=== PATIENT | female | born 1955 | race Caucasian/White ===

== ENCOUNTER 2023-07-20 15:12 | Observation (INO) | payer MEDICARE, OTHER ==
--- NOTE | 2023-07-20 15:16 | ED ---
Chest Pain HPI - General Source: patient, RN notes reviewed Mode of arrival: ambulatory Limitations: no limitations - History of Present Illness MD Complaint: chest pain <Nancy Robbins - Last Filed: 07/20/23 15:13> <Carter Ledesma - Last Filed: 07/21/23 01:09> - General Chief Complaint: Chest Pain Stated Complaint: Chest pain and SOB Time Seen by Provider: 07/20/23 15:15 - History of Present Illness Initial Comments: This is a 68 year old female who presents to the emergency department for chest pain and shortness of breath. She went to urgent care earlier today for her symptoms and was subsequently told to come to the emergency department for evaluation. She had an EKG done at urgent care and was told that this was normal. 1 month ago she was diagnosed with aortic valve regurgitation and she had a cardiac stent placed in 2008. (Nancy Robbins) 68-year-old female presenting with chief complaint of chest pain. Pain has been ongoing for 1 week. It is accompanied by shortness of breath. She states that the pain feels like a soreness in the center of her chest. She denies any lower extremity swelling. No cough, congestion, sore throat, fever, chills. No abdominal pain, nausea, vomiting, (Carter Ledesma) - Related Data Home Medications Medication Instructions Recorded Confirmed ALPRAZolam [Xanax] 0.25 mg PO BID PRN 07/20/23 07/20/23 Albuterol Sulfate [Albuterol 2 puff PO RT-Q6H PRN 07/20/23 07/20/23 Sulfate Hfa] Alirocumab [Praluent Pen] 75 mg SQ Q14D 07/20/23 07/20/23 Famotidine [Pepcid] 20 mg PO BID 07/20/23 07/20/23 Fluticasone Nasal [place] [Flonase 2 spray EA NOSTRIL HS 07/20/23 07/20/23 Nasal [place]] Levothyroxine Sodium [Synthroid] 125 mcg PO DAILY 07/20/23 07/20/23 Montelukast [Singulair] 10 mg PO HS 07/20/23 07/20/23 Rosuvastatin Calcium 5 mg PO MOWEFR@2100 07/20/23 07/20/23 Sertraline [Zoloft] 50 mg PO DAILY 07/20/23 07/20/23 Warfarin Sodium 4 mg PO BRIAN@2100 07/20/23 07/20/23 Warfarin Sodium 5 mg PO KENDRAA@2100 07/20/23 07/20/23 lisinopriL [Zestril] 5 mg PO HS 07/20/23 07/20/23 traMADol HCL 50 mg PO Q6H PRN 07/20/23 07/20/23 Allergies Allergy/AdvReac Type Severity Reaction Status Date / Time Penicillins Allergy Rash/Hives Verified 07/20/23 22:41 Sulfa (Sulfonamide Allergy Nausea & Verified 07/20/23 22:41 Antibiotics) Vomiting & Diarrhea tetanus and diphtheria Allergy fever Verified 07/20/23 22:41 toxoids Review of Systems ROS Other: All systems not noted in ROS Statement are negative. <Nancy Robbins - Last Filed: 07/20/23 15:13> ROS Other: All systems not noted in ROS Statement are negative. <Carter Ledesma - Last Filed: 07/21/23 01:09> ROS Statement: Those systems with pertinent positive or pertinent negative responses have been documented in the HPI. General Exam <Nancy Robbins - Last Filed: 07/20/23 15:13> Limitations: no limitations General appearance: alert, in no apparent distress Head exam: Present: atraumatic, normocephalic, normal inspection Eye exam: Present: normal appearance, EOMI. Absent: scleral icterus, periorbital swelling Neck exam: Present: normal inspection, full ROM Respiratory exam: Present: normal lung sounds bilaterally. Absent: respiratory distress, wheezes, rales, rhonchi, stridor Cardiovascular Exam: Present: regular rate, normal rhythm, normal heart sounds. Absent: systolic murmur, diastolic murmur, rubs, gallop, clicks Extremities exam: Absent: pedal edema Neurological exam: Present: alert, oriented X3, CN II-XII intact Psychiatric exam: Present: normal affect, normal mood Skin exam: Present: warm, dry, intact, normal color. Absent: rash <Carter Ledesma - Last Filed: 07/21/23 01:09> - General Exam Comments Initial Comments: Visual Physical Exam Vital signs reviewed General: Well-appearing, nontoxic, no acute distress. Head: Normocephalic, atraumatic Eyes: PERRLA, EOMI ENT: Airway patent Chest: Nonlabored breathing Skin: No visual rash, normal skin tone Neuro: Alert and oriented 3 Musculoskeletal: No gross abnormalities I performed the QuickNote portion of this chart. Signed Nancy Robbins PA-C. (Nancy Robbins) Course Vital Signs 07/20/23 07/20/23 07/20/23 15:13 19:15 20:45 Temperature 98.5 F 98.1 F Pulse Rate 97 77 68 Respiratory 20 18 18 Rate Blood Pressure 125/63 151/78 167/84 O2 Sat by Pulse 95 100 97 Oximetry 07/20/23 07/21/23 22:00 01:04 Temperature Pulse Rate 71 77 Respiratory 18 18 Rate Blood Pressure 195/84 100/64 O2 Sat by Pulse 95 93 L Oximetry Chest Pain MDM <Carter Ledesma - Last Filed: 07/21/23 01:09> - MDM Was pt. sent in by a medical professional or institution ([facility], EMISSIONS TECHNICIAN, urgent care, hospital, or long-term...) When possible be specific @ -No Did you speak to anyone other than the patient for history (EMS, parent, family, police, friend...)? What history was obtained from this source @ -No Did you review nursing and triage notes (agree or disagree)? Why? @ -I reviewed and agree with nursing and triage notes Were old charts reviewed (outside hosp., previous admission, EMS record, old EKG, old radiological studies, urgent care reports/EKG's, long-term records)? Report findings @ -No old charts were reviewed Differential Diagnosis (chest pain, altered mental status, abdominal pain women, abdominal pain men, vaginal bleeding, weakness, fever, dyspnea, syncope, headache, dizziness, GI bleed, back pain, seizure, CVA, palpatations, mental health, musculoskeletal)? @ -MDM Differential Chest Pain: Stable Angina, Unstable Angina, STEMI, NSTEMI Aortic Dissection, Pneumothorax, Musculoskeletal, Esophageal Spasm GERD, Cholecystitis, Pancreatitis, Zoster This is not meant to be an all-inclusive list. EKG interpreted by me (3pts min.). @ Sinus rhythm ventricular rate 78. AL interval 137. QRS 93. QT 379. QTc 412. X-rays interpreted by me (1pt min.). @ -Increased airspace opacities projecting over the heart. Correlate for pneumonia. Superimposed COPD. CT interpreted by me (1pt min.). @ -None done U/S interpreted by me (1pt. min.). @ -None done What testing was considered but not performed or refused? (CT, X-rays, U/S, labs)? Why? @ -None What meds were considered but not given or refused? Why? @ -None Did you discuss the management of the patient with other professionals (professionals i.e. , PA, EMISSIONS TECHNICIAN, lab, RT, psych nurse, social work job titles, manager utility, teacher, youth liaison officer, geriatric case manager)? Give summary @ -Spoke with Dr. Bean who accepted admission Was smoking cessation discussed for >3mins.? @ -No Was critical care preformed (if so, how long)? @ -No Were there social determinants of health that impacted care today? How? (Homelessness, low income, unemployed, alcoholism, drug addiction, transportation, low edu. Level, literacy, decrease access to med. care, penitentiary, rehab)? @ -No Was there de-escalation of care discussed even if they declined (Discuss DNR or withdrawal of care, Hospice)? DNR status @ -No What co-morbidities impacted this encounter? (DM, HTN, Smoking, COPD, CAD, Cancer, CVA, ARF, Chemo, Hep., AIDS, mental health diagnosis, sleep apnea, morbid obesity)? @ -CAD Was patient admitted / discharged? Hospital course, mention meds given and route, prescriptions, significant lab abnormalities, going to OR and other pert inent info. @ -68-year-old female presenting with chief complaint of chest pain and shortness of breath ongoing for the last week. On physical examination heart and lungs are clear to auscultation. Lab work shows no leukocytosis or anemia. INR therapeutic at 3.0, patient is on warfarin. Negative troponin. Negative influenza, RSV, and covid. Chest x-ray suggestive of pneumonia. Given the patient's presentation I think pneumonia is less likely. She will be admitted for observation for chest pain. Patient is agreeable with this plan. I discussed this case with my attending Dr. Taylor, Dr. Geneva accepted admission. After patient was admitted she began having active chest pain again. New EKG obtained showed some ST depression. Patient was given aspirin, nitro, started on heparin after discussion with my attending. Undiagnosed new problem with uncertain prognosis? @ -No Drug Therapy requiring intensive monitoring for toxicity (Heparin, Nitro, Insulin, Cardizem)? @ -heparin Were any procedures done? @ -No Diagnosis/symptom? @ -Chest pain, pneumonia Acute, or Chronic, or Acute on Chronic? @ -Acute Uncomplicated (without systemic symptoms) or Complicated (systemic symptoms)? @ -Complicated Side effects of treatment? @ -No Exacerbation, Progression, or Severe Exacerbation? @ -No Poses a threat to life or bodily function? How? (Chest pain, USA, CT, pneumonia, PE, COPD, DKA, ARF, appy, cholecystitis, CVA, Diverticulitis, Homicidal, Suicidal, threat to staff... and all critical care pts) @ -Yes (Carter Ledesma) Disposition <Nancy Robbins - Last Filed: 07/20/23 15:13> Time of Disposition: 22:34 <Carter Ledesma - Last Filed: 07/21/23 01:09> Clinical Impression: Pneumonia, Chest pain Disposition: ADMITTED IP TO THIS HOSP Condition: Fair
[2023-07-20 15:52] LABS: Basophils % (A) 0 %; Eosinophils # (A) 0.3 k/uL (0-0.7); Eosinophils % (A) 3 %; HCT 45.5 % (34.0-46.0); HGB 15.4 gm/dL (11.4-16.0); Lymphocytes # (A) 1.3 k/uL (1.0-4.8); Lymphocytes % (A) 15 %; MCH 31.4 pg (25.0-35.0); MCHC 33.8 g/dL (31.0-37.0); MCV 92.9 fL (80.0-100.0); Mean Platelet Volume 7.7; Monocytes # (A) 0.5 k/uL (0-1.0); Monocytes % (A) 6 %; Neutrophils # (A) 6.4 k/uL (1.3-7.7); Neutrophils % (A) 75 %; Platelet Count 221 k/uL (150-450); RBC 4.89 m/uL (3.80-5.40); RDW 12.8 % (11.5-15.5); WBC 8.5 k/uL (3.8-10.6)
[2023-07-20 16:00] LABS: Partial Thromboplastin Time 39.3 sec (22.0-30.0); Prothrombin Time 29.7 sec (9.0-12.0)
--- NOTE | 2023-07-20 16:04 | XR ---
EXAMINATION TYPE: XR chest 2V DATE OF EXAM: 07/20/2023 3:49 PM COMPARISON: Chest radiographs from 12/21/2012 TECHNIQUE: XR chest 2V Frontal and lateral views of the chest. CLINICAL INDICATION:Female, 68 years old with history of Chest Pain; FINDINGS: Lungs/Pleura: There is some increased opacities projecting over the heart compared to prior. Prominen t interstitial lung markings are seen scattered throughout the lungs. No evidence of focal consolidat ion, pneumothorax or pleural effusion. Pulmonary vascularity: Unremarkable. Heart/mediastinum: Cardiomediastinal silhouette is unremarkable. Musculoskeletal: No acute osseous pathology. IMPRESSION: 1. Increased airspace opacities projecting the heart. Correlate for pneumonia. Superimposed COPD.
[2023-07-20 16:38] LABS: ALT 26 U/L (4-34); AST 26 U/L (14-36); African American GFR (CKD) 77 (>60 ml/min/1.73 sqM); Albumin 3.8 g/dL (3.5-5.0); Alkaline Phosphatase 77 U/L (38-126); Anion Gap 7 mmol/L; Blood Urea Nitrogen 19 mg/dL (7-17); Calcium 9.1 mg/dL (8.4-10.2); Carbon Dioxide 29 mmol/L (22-30); Chloride 101 mmol/L (98-107); Glucose 159 mg/dL (74-99); Magnesium 1.9 mg/dL (1.6-2.3); Non-African American GFR(CKD) 66 (>60 ml/min/1.73 sqM); Potassium 3.8 mmol/L (3.5-5.1); Sodium 137 mmol/L (137-145); Total Bilirubin 0.7 mg/dL (0.2-1.3); Total Protein 6.8 g/dL (6.3-8.2)
[2023-07-20] MEDS ORDERED: lisinopriL 5 MG TAB PO STA (21:16)
[2023-07-20] MEDS ORDERED: hydrALAZINE HCL 20 MG/ML 1 ML VIAL IVP STA (21:59)
[2023-07-20 22:18] LABS: Glucose,Whole Blood 90 mg/dL (70-110)
[2023-07-20] MEDS ORDERED: AZITHROMYCIN 500 MG in SODIUM CHLORIDE 0.9% 250 ML IVPB STA (22:30)
[2023-07-20] MEDS ORDERED: NALOXONE 0.4 MG/ML 1 ML VIAL IV PRN (22:31)
[2023-07-20] MEDS ORDERED: SODIUM CHLORIDE 0.9% 1,000 ML IV SCH (22:45)
[2023-07-20] MEDS ORDERED: NITROGLYCERIN SL TABS 0.4 MG TAB SUBLINGUAL PRN (23:10)
[2023-07-20] MEDS ORDERED: ASPIRIN 81 MG PO STA (23:10)
[2023-07-20] MEDS: PANTOPRAZOLE 40 MG/10 ML VIAL IV SCH (23:17)
[2023-07-20] MEDS ORDERED: HEPARIN SODIUM 1,000 UN/ML (10ML VL) IV PRN (23:22)
[2023-07-20] MEDS ORDERED: HEPARIN SODIUM 1,000 UN/ML (10ML VL) IV ONE (23:22)
[2023-07-20] MEDS ORDERED: HEPARIN SOD,PORK IN 0.45% NACL 25,000 UNIT in 0.45% NACL 1 250ML.BAG IV SCH (23:30)
[2023-07-21] MEDS ORDERED: MAG HYDROX/AL HYDROX/SIMETH 30 ML CUP PO PRN (01:35)
[2023-07-21] MEDS ORDERED: ZOLPIDEM 5 MG TAB PO STA (01:38)
[2023-07-21] MEDS ORDERED: ALPRAZolam 0.25 MG TAB PO PRN (04:12)
--- NOTE | 2023-07-21 04:41 | P.HPIM ---
History of Present Illness H&P Date: 07/20/23 Chief Complaint: chest pain 68 year old female with antiphospholipic antibody syndrome with history of stroke .on coumadin comes in from urgent care due to chest pain . she describes 1 week history of lower chest/ epigastric pain , she notices it getting worse at night time, but no other clear precipitating or aggrevating factors. she does have GERD symptoms , but this time she was also experiencing short lived pain with SOB. for the past week. no associated dizziness, profuse sweating, palpitations or syncope . she does have history of stroke due to her APLS for which she is on coumadin. she has history of CAD s/p stent 2009 in her LAD. she went to urgent care today due to recurrent symptoms , and her EKG was normal there, but the doc recommended she goes to the ED for further eval. she denies any cough , fever, chills, vomiting, diarrhea , changes in her urinary habits, or any new focal neuro deficits no recent travel, she is compliant with her meds. INR upon presentation was 3 denies tobacco smoking, illicit drugs or alcohol review of systems Pertinent positives as noted in HPI. All other systems were reviewed and are negative on exam Constitutional: No acute distress, conversant, pleasant Eyes: Anicteric sclerae, moist conjunctiva, Pupils equal round reactive to light ENMT: NC/AT Oropharynx clear, no erythema, or exudates Neck: Supple, no masses, or JVD No carotid bruits No thyromegaly Lungs: Clear to auscultation Clear to percussion Normal respiratory effort, no accessory muscle use Cardiovascular: Heart regular in rate and rhythm, No murmurs, gallops, or rubs No peripheral edema Abdominal: Soft epigastric tenderness , no guarding, rebound or rigidity Abdomen moving with respiration Normoactive bowel sounds No hepatomegaly, No splenomegaly No palpable mass No abdominal wall hernia noted Skin: Normal temperature, tone, texture, turgor No induration No subcutaneous nodules No rash, lesions No ulcers Extremities: No digital cyanosis No clubbing Pedal pulses intact and symmetrical Radial pulses intact and symmetrical No calf tenderness Psychiatric: Alert and oriented to person, place and time Appropriate affect fair judgement Neuro Muscles Strength 5/5 in all 4 extremities Sensation to light touch grossly present throughout Cranial nerves II-XII grossly intact Lymphatics: no palpable cervical or supraclavicular lymph nodes Past Medical History Past Medical History: Coronary Artery Disease (CAD) History of Any Multi-Drug Resistant Organisms: None Reported Past Surgical History: Heart Catheterization With Stent Additional Past Surgical History / Comment(s): cataracts, eye lid surgery Past Psychological History: Depression Smoking Status: Never smoker Past Alcohol Use History: Occasional Past Drug Use History: Marijuana Medications and Allergies Home Medications Medication Instructions Recorded Confirmed Type ALPRAZolam [Xanax] 0.25 mg PO BID PRN 07/20/23 07/20/23 History Albuterol Sulfate [Albuterol 2 puff PO RT-Q6H PRN 07/20/23 07/20/23 History Sulfate Hfa] Alirocumab [Praluent Pen] 75 mg SQ Q14D 07/20/23 07/20/23 History Famotidine [Pepcid] 20 mg PO BID 07/20/23 07/20/23 History Fluticasone Nasal [place] [Flonase 2 spray EA NOSTRIL HS 07/20/23 07/20/23 History Nasal [place]] Levothyroxine Sodium [Synthroid] 125 mcg PO DAILY 07/20/23 07/20/23 History Montelukast [Singulair] 10 mg PO HS 07/20/23 07/20/23 History Rosuvastatin Calcium 5 mg PO MOWEFR@209907/20/23 07/20/23 History Sertraline [Zoloft] 50 mg PO DAILY 07/20/23 07/20/23 History Warfarin Sodium 4 mg PO MOTH@209907/20/23 07/20/23 History Warfarin Sodium 5 mg PO SUTUWEFRSA@209907/20/23 07/20/23 History lisinopriL [Zestril] 5 mg PO HS 07/20/23 07/20/23 History traMADol HCL 50 mg PO Q6H PRN 07/20/23 07/20/23 History Allergies Allergy/AdvReac Type Severity Reaction Status Date / Time Penicillins Allergy Rash/Hives Verified 07/20/23 22:41 Sulfa (Sulfonamide Allergy Nausea & Verified 07/20/23 22:41 Antibiotics) Vomiting & Diarrhea tetanus and diphtheria Allergy fever Verified 07/20/23 22:41 toxoids Physical Exam Vitals: Vital Signs Temp Pulse Resp BP Pulse Ox 07/21/23 02:17 85 18 117/59 94 L 07/21/23 01:04 77 18 100/64 93 L 07/20/23 22:00 71 18 195/84 95 07/20/23 20:45 68 18 167/84 97 07/20/23 19:15 98.1 F 77 18 151/78 100 07/20/23 15:13 98.5 F 97 20 125/63 95 Intake and Output 07/20/23 07/20/23 07/21/23 14:59 22:59 06:59 Other: Weight 79.832 kg Results CBC & Chem 7: 07/20/23 15:31 07/20/23 15:31 Labs: Abnormal Lab Results - Last 24 Hours (Table) 07/20/23 07/20/23 Range/Units 15:31 15:31 PT 29.7 H (9.0-12.0) sec INR 3.0 H (<1.2) APTT 39.3 H (22.0-30.0) sec BUN 19 H (7-17) mg/dL Glucose 159 H (74-99) mg/dL Assessment and Plan Assessment: 68 year old female with APLS with history of stroke on coumadin , h/o CAD with stent of LAD 2008 , coming in for chest pain X1 week I discussed the case with ED doc and I accepted the admission for atypical chest pain to rule out ACS with anticipted length of stay < 2 midnights atypical chest pain h/o CAD stent LAD 2008 negative stress test in april of this year recent echocardiogram showed aortic valve insufficiency trops negative equipment monitor phototypesetting EKG ST depression lateral leads cardiology consult continue with statin , aspirin d dimer negative acute respiratory viral panel negative for covid , rsv , and influenza CXR showed some possible opacities , but denies any respiratory symptoms APLS with history of stroke on coumadin INR 3 theraputic continue coumadin dosing by pharmacy GERD consider OP GI eval with possible EGD maalox prn protonix 40 mg po daily COPD / asthma continue inhalers , continue singulair compensated hypothyroid resume levothyroxin full code DVT PPX on coumadin for APLS
[2023-07-21] MEDS ORDERED: LEVOTHYROXINE 125 MCG TAB PO SCH (06:30)
[2023-07-21 07:56] LABS: INR 2.4 (<1.2); Prothrombin Time 23.1 sec (9.0-12.0)
[2023-07-21] MEDS ORDERED: PANTOPRAZOLE 40 MG/10 ML VIAL ONE (09:00)
[2023-07-21] MEDS ORDERED: SERTRALINE 50 MG TAB PO SCH (09:00)
[2023-07-21] MEDS ORDERED: SERTRALINE 50 MG TAB ONE (09:00)
[2023-07-21 09:02] VITALS: BP 120/69; PULSE 62; RESP 20; TEMP 98.3
--- NOTE | 2023-07-21 09:04 | P.CRDCN ---
History of Present Illness History of present illness: Patient presents with chest discomfort for about a week Pain had been constant for one week and when she came in yesterday Twelve-lead EKG shows sinus rhythm with nonspecific ST-T abnormality Normal cardiac enzyme x2 Labs are normal She has a history of coronary artery disease status post coronary stenting History of hypercoagulable state on warfarin History of dyslipidemia currently on [employer] skin 9 inhibitors and in talking to statins Aortic regurgitation Lisinopril was added recently 2-D echo and Doppler study she has recently shown preserved LV systolic function with 2-3+ aortic regurgitation Normal stress test recently in April Plan Repeat troponin, third Ambulate around the hallway Watch for any exertional chest discomfort Internet issues today EMR not working Difficult to get into EMR Past Medical History Past Medical History: Coronary Artery Disease (CAD) History of Any Multi-Drug Resistant Organisms: None Reported Past Surgical History: Heart Catheterization With Stent Additional Past Surgical History / Comment(s): cataracts, eye lid surgery Past Psychological History: Depression Smoking Status: Never smoker Past Alcohol Use History: Occasional Past Drug Use History: Marijuana Medications and Allergies Home Medications Medication Instructions Recorded Confirmed Type ALPRAZolam [Xanax] 0.25 mg PO BID PRN 07/20/23 07/20/23 History Albuterol Sulfate [Albuterol 2 puff PO RT-Q6H PRN 07/20/23 07/20/23 History Sulfate Hfa] Alirocumab [Praluent Pen] 75 mg SQ Q14D 07/20/23 07/20/23 History Famotidine [Pepcid] 20 mg PO BID 07/20/23 07/20/23 History Fluticasone Nasal [place] [Flonase 2 spray EA NOSTRIL HS 07/20/23 07/20/23 History Nasal [place]] Levothyroxine Sodium [Synthroid] 125 mcg PO DAILY 07/20/23 07/20/23 History Montelukast [Singulair] 10 mg PO HS 07/20/23 07/20/23 History Rosuvastatin Calcium 5 mg PO MOWEFR@209907/20/23 07/20/23 History Sertraline [Zoloft] 50 mg PO DAILY 07/20/23 07/20/23 History Warfarin Sodium 4 mg PO MOTH@209907/20/23 07/20/23 History Warfarin Sodium 5 mg PO SUTUWEFRSA@209907/20/2323 History lisinopriL [Zestril] 5 mg PO HS 07/20/23 07/20/23 History traMADol HCL 50 mg PO Q6H PRN 07/20/23 07/20/23 History Allergies Allergy/AdvReac Type Severity Reaction Status Date / Time Penicillins Allergy Rash/Hives Verified 07/20/23 22:41 Sulfa (Sulfonamide Allergy Nausea & Verified 07/20/23 22:41 Antibiotics) Vomiting & Diarrhea tetanus and diphtheria Allergy fever Verified 07/20/23 22:41 toxoids Physical Exam Vitals: Vital Signs Temp Pulse Pulse Resp BP BP Pulse Ox 07/21/23 07:00 98.3 F 62 20 120/69 97 07/21/23 05:20 78 134/73 94 L 07/21/23 02:17 85 18 117/59 94 L 07/21/23 01:04 77 18 100/64 93 L 07/20/23 22:00 71 18 195/84 95 07/20/23 20:45 68 18 167/84 97 07/20/23 19:15 98.1 F 77 18 151/78 100 07/20/23 15:13 98.5 F 97 20 125/63 95 Intake and Output 07/20/23 07/21/23 07/21/23 22:59 06:59 14:59 Other: Weight 79.832 kg Results 07/20/23 15:31 07/20/23 15:31 Cardiac Enzymes 07/20/23 07/20/23 07/20/23 Range/Units 15:31 15:31 23:14 AST 26 (14-36) U/L Troponin I <0.012 <0.012 (0.000-0.034) ng/mL 07/21/23 Range/Units 02:25 AST (14-36) U/L Troponin I <0.012 (0.000-0.034) ng/mL Coagulation 07/20/23 07/21/23 Range/Units 15:31 06:35 PT 29.7 H 23.1 H (9.0-12.0) sec APTT 39.3 H (22.0-30.0) sec CBC 07/20/23 Range/Units 15:31 WBC 8.5 (3.8-10.6) k/uL RBC 4.89 (3.80-5.40) m/uL Hgb 15.4 (11.4-16.0) gm/dL Hct 45.5 (34.0-46.0) % Plt Count 221 (150-450) k/uL Comprehensive Metabolic Panel 07/20/23 Range/Units 15:31 Sodium 137 (137-145) mmol/L Potassium 3.8 (3.5-5.1) mmol/L Chloride 101 (98-107) mmol/L Carbon Dioxide 29 (22-30) mmol/L BUN 19 H (7-17) mg/dL Creatinine 0.89 (0.52-1.04) mg/dL Glucose 159 H (74-99) mg/dL Calcium 9.1 (8.4-10.2) mg/dL AST 26 (14-36) U/L ALT 26 (4-34) U/L Alkaline Phosphatase 77 (38-126) U/L Total Protein 6.8 (6.3-8.2) g/dL Albumin 3.8 (3.5-5.0) g/dL Current Medications Generic Name Dose Route Start Last Admin Trade Name Freq PRN Reason Stop Dose Admin Al Hydroxide/Mg Hydroxide 30 ml 07/21/23 01:35 07/21/23 02:17 Mag Hydrox/Al Hydrox/Simeth 30 Ml Cup PO 30 ml Q4HR PRN Administration GI Upset Alprazolam 0.25 mg 07/21/23 04:12 Alprazolam 0.25 Mg Tab PO BID PRN Anxiety Atorvastatin Calcium 10 mg 07/21/23 21:00 Atorvastatin 10 Mg Tab PO MOWEFR@2100 [facility] Sodium Chloride 1,000 mls @ 75 mls/hr 07/20/23 22:45 07/20/23 23:25 Saline 0.9% IV 75 mls/hr .[id number] KELL Administration Levothyroxine Sodium 125 mcg 07/21/23 06:30 Levothyroxine 125 Mcg Tab PO DAILY@0630 [facility] Miscellaneous Information 1 each 07/21/23 04:13 Warfarin Per Pharmacy MISCELLANE DIRECTED PRN Per Protocol Protocol Montelukast Sodium 10 mg 07/21/23 21:00 Montelukast 10 Mg Tab PO HS KELL Naloxone HCl 0.2 mg 07/20/23 22:31 Naloxone 0.4 Mg/Ml 1 Ml Vial IV Q2M PRN Opioid Reversal Nitroglycerin 0.4 mg 07/20/23 23:10 07/20/23 23:38 Nitroglycerin Sl Tabs 0.4 Mg Tab SUBLINGUAL 0.4 mg Q5M PRN Administration Chest Pain Pantoprazole Sodium 40 mg 07/20/23 22:45 07/20/23 23:17 Pantoprazole 40 Mg/10 Ml Vial IV 40 mg DAILY KELL Administration Sertraline HCl 50 mg 07/21/23 09:00 Sertraline 50 Mg Tab PO DAILY KELL Warfarin Sodium 5 mg 07/21/23 18:00 Warfarin 5 Mg Tab PO 07/21/23 18:01 ONCE@1800 ONE Intake and Output 07/20/23 07/21/23 07/21/23 22:59 06:59 14:59 Other: Weight 79.832 kg 07/20/23 15:31 07/20/23 15:31
[2023-07-21] MEDS: PANTOPRAZOLE 40 MG/10 ML VIAL IV SCH (10:20)
[2023-07-21 11:06] LABS: Basophils # (A) 0.03 X 10*3/uL (0.00-0.10); Basophils % (A) 0.3 %; Eosinophils # (A) 0.09 X 10*3/uL (0.04-0.35); HCT 41.2 % (37.2-46.3); HGB 13.8 d/dL (12.0-15.0); Lymphocytes # (A) 1.76 X 10*3/uL (0.90-5.00); Lymphocytes % (A) 19.8 %; MCH 30.9 pg (27.0-32.0); MCHC 33.5 d/dL (32.0-37.0); MCV 92.2 FL (80.0-97.0); Mean Platelet Volume 10.2 FL (9.5-12.2); Monocytes # (A) 0.83 X 10*3/uL (0.20-1.00); Monocytes % (A) 9.3 %; NRBC Per 100 WBC 0 X 10*3/uL (0.00-0.01); Neutrophils # (A) 6.17 X 10*3/uL (1.80-7.70); Neutrophils % (A) 69.5 %; Platelet Count 205 X 10*3/uL (140-440); RBC 4.47 X 10*6/uL (4.10-5.20); RDW 12.8 % (11.5-14.5); WBC 8.89 X 10*3/uL (4.50-10.00)
--- NOTE | 2023-07-21 12:24 | P.DS ---
Providers Date of admission: 07/20/23 22:33 Expected date of discharge: 07/21/23 Attending physician: Shakira Bean MD Consults: 07/20/23 22:31 Consult Physician Urgent Consulting Provider: [facility] Consult Reason/Comments: chest pain Do you want consulting provider notified?: Yes, Notify in am Primary care physician: Evin Mahan [facility] Hospital Course: Discharge Diagnosis: Chest pain, acute coronary event ruled out. Chest pain believed to be acid reflux recommending patient follow-up with labor arbitrator for recommended outpatient EGD and patient started on Maalox 30 mg every 4 hours as needed along with daily Pepcid to assist with acid reflux. In addition patient underwent full cardiac workup. Troponins trended and all were negative at less than 0.0123 draws. EKG was completed showing sinus tachycardia at [address] depression in lateral leads V4 through V6. Patient to follow up outpatient with PCP and cardiology. History of antiphospholipid antibody syndrome with previous CVA on Coumadin, Therapeutic INR of 2.4. CAD with previous stent Hypertension Hyperlipidemia Hospital Course: Patient is a very pleasant 68-year-old female with a past medical history of antiphospholipid antibody syndrome with a history of CVA on Coumadin, CAD with previous stent, hypertension, and hyperlipidemia. Patient presented to the emergency department overnight with a chief complaint of chest pain. She underwent full evaluation in the emergency department. Vital signs reviewed. Blood pressure stable 125/63, heart rate 97, respiratory rate 20, temp 98.5F, SpO2 of 95% on room air. EKG was completed showing sinus tachycardia at [address] depression in lateral leads V4 through V6. Chest x-ray showing increased airspace opacities concerning for possible pneumonia or superimposed COPD, patient denies having any respiratory complaints, cough, congestion, or fever. Labs were completed and reviewed. CBC was unremarkable. Coagulation profile showing therapeutic INR 3.0. BMP unremarkable. Troponin negative at less than 0.012. Patient was admitted under our services with consultation to cardiology. Troponins trended and all were negative at less than 0.0123 draws. Patient was free from chest pain or discomfort after arrival to our facility. Cardiology evaluated recommended patient ambulate in the halls to determine if chest pain returns and patient again declines stating no chest pain notes shortness of breath and no palpitations or any other complaints at this time. Medically, patient is stable at this time cardiology clearing patient from cardiac perspective for outpatient follow-up in the office in 1-2 weeks. Monica ent medically stable for discharge and discharged home at this time recommending outpatient follow-up with PCP and cardiology. Physical exam: General: non toxic, no distress, appears at stated age Derm: warm, dry Head: atraumatic, normocephalic, symmetric Eyes: EOMI, no lid lag, anicteric sclera Mouth: no lip lesion, mucus membranes moist Cardiovascular: S1S2 reg, no murmur, positive posterior tibial pulse bilateral, Lungs: CTA bilateral, no rhonchi, no rales , no accessory muscle use Abdominal: soft, nontender to palpation, no guarding, no appreciable organomegaly Ext: no gross muscle atrophy, no edema, no contractures Neuro: CN II-XI grossly intact, no focal neuro deficits Psych: Alert, oriented, appropriate affect A total of 35 minutes of time were spent preparing this complex discharge summary. Pt was discharged on 07/21/23 12:24 PM. Patient was seen independently by Nurse Practitioner. This document was prepared using [employer] dictation software. Please allow for errors in classroom instructor while rare they do occur. Tamir Harmon NP rendered care for this patient independently, reviewed the findings and plan as documented in the note above. I did not physically speak with or examine the patient on this date. Patient Condition at Discharge: Stable Plan - Discharge Summary New Discharge Prescriptions: New Mag Hydrox/Al Hydrox/Simeth [Maalox] 30 ml PO Q4HR PRN #1800 ml PRN Reason: Gi Upset Continue Albuterol Sulfate [Albuterol Sulfate Hfa] 2 puff PO RT-Q6H PRN PRN Reason: Shortness Of Breath Alirocumab [Praluent Pen] 75 mg SQ Q14D Famotidine [Pepcid] 20 mg PO BID Fluticasone Nasal [place] [Flonase Nasal [place]] 2 spray EA NOSTRIL HS Montelukast [Singulair] 10 mg PO HS Rosuvastatin Calcium 5 mg PO MOWEFR@2100 Warfarin Sodium 4 mg PO MOTH@2100 Warfarin Sodium 5 mg PO SUTUWEFRSA@2100 ALPRAZolam [Xanax] 0.25 mg PO BID PRN PRN Reason: Anxiety Levothyroxine Sodium [Synthroid] 125 mcg PO DAILY lisinopriL [Zestril] 5 mg PO HS Sertraline [Zoloft] 50 mg PO DAILY traMADol HCL 50 mg PO Q6H PRN PRN Reason: Pain Discharge Medication List ALPRAZolam [Xanax] 0.25 mg PO BID PRN 07/20/23 [History] Albuterol Sulfate [Albuterol Sulfate Hfa] 2 puff PO RT-Q6H PRN 07/20/23 [History] Alirocumab [Praluent Pen] 75 mg SQ Q14D 07/20/23 [History] Famotidine [Pepcid] 20 mg PO BID 07/20/23 [History] Fluticasone Nasal [place] [Flonase Nasal [place]] 2 spray EA NOSTRIL HS 07/20/23 [History] Levothyroxine Sodium [Synthroid] 125 mcg PO DAILY 07/20/23 [History] Montelukast [Singulair] 10 mg PO HS 07/20/23 [History] Rosuvastatin Calcium 5 mg PO MOWEFR@209907/20/23 [History] Sertraline [Zoloft] 50 mg PO DAILY 07/20/23 [History] Warfarin Sodium 4 mg PO MOTH@209907/20/23 [History] Warfarin Sodium 5 mg PO SUTUWEFRSA@209907/20/23 [History] lisinopriL [Zestril] 5 mg PO HS 07/20/23 [History] traMADol HCL 50 mg PO Q6H PRN 07/20/23 [History] Mag Hydrox/Al Hydrox/Simeth [Maalox] 30 ml PO Q4HR PRN #1800 ml 07/21/23 [Rx] Follow up Appointment(s)/Referral(s): Deuce Mahan MD [STAFF PHYSICIAN] - 1-2 days Ruy Lamb MD [STAFF PHYSICIAN] - 1 Week Jazmyn Thompson MD [STAFF PHYSICIAN] - 1 Week Patient Instructions/Handouts: Chest Pain (DC) Discharge Disposition: HOME SELF-CARE
[2023-07-21] MEDS ORDERED: WARFARIN 5 MG TAB PO ONE (18:00)
[2023-07-21] MEDS ORDERED: ATORVASTATIN 10 MG TAB PO SCH (21:00)
[2023-07-21] MEDS ORDERED: MONTELUKAST 10 MG TAB PO SCH (21:00)
== END 2023-07-21 14:23 | disposition home or self-care (01) ==
LOC: EC 15:12 → 6NMEDSUR 22:33
PROVIDERS: ADMIT Internal Medicine; ATTEND Internal Medicine
DX: R07.89 Other chest pain (principal); K21.9 Gastro-esophageal reflux disease without esophagitis; R00.0 Tachycardia, unspecified; D68.61 Antiphospholipid syndrome; J44.0 Chronic obstructive pulmonary disease with (acute) lower respiratory infection; I35.1 Nonrheumatic aortic (valve) insufficiency; I25.110 Atherosclerotic heart disease of native coronary artery with unstable angina pectoris; E03.9 Hypothyroidism, unspecified; I10 Essential (primary) hypertension; F32.A Depression, unspecified; E78.5 Hyperlipidemia, unspecified; Z86.73 Personal history of transient ischemic attack (TIA), and cerebral infarction without residual deficits; Z79.01 Long term (current) use of anticoagulants; Z95.5 Presence of coronary angioplasty implant and graft; Z79.899 Other long term (current) drug therapy; Z79.890 Hormone replacement therapy; Z88.0 Allergy status to penicillin; Z88.7 Allergy status to serum and vaccine; Z88.2 Allergy status to sulfonamides; Z20.822 Contact with and (suspected) exposure to COVID-19
CPT/HCPCS: 96365; 96366; 96375; 99285; 36415; 93005; 85379; 80053; 83735; 84484 ×2; 85025 ×2; 85610 ×2; 85730; 87636; 71046; G0378 ×2; J0360; J0456; C9113

== ENCOUNTER 2024-03-07 10:11 | Day surgery (SDC) | payer MEDICARE, OTHER ==
[~2024-03-07 10:11] MED LIST: ALPRAZolam 0.25 MG TAB PO PRN; ALPRAZolam 0.5 MG TAB PO PRN; ATORVASTATIN 80 MG TAB PO ONE; HEPARIN SODIUM,PORCINE (1 ML) 2,500 UNIT in SODIUM CHLORIDE 0.9% 250 ML IRRIGATION PRN; HEPARIN SODIUM,PORCINE 10,000 UNIT in SODIUM CHLORIDE 0.9% 1,000 ML IRRIGATION PRN; NITROGLYCERIN SL TABS 0.4 MG TAB SUBLINGUAL PRN; SODIUM CHLORIDE 0.9% 1,000 ML in EMPTY BAG 1 BAG IV SCH
[2024-03-07] MEDS: SODIUM CHLORIDE 0.9% 1,000 ML IV ONE (10:16)
[2024-03-07] MEDS: ASPIRIN 325 MG TAB PO ONE (10:28)
[2024-03-07 10:50] LABS: Basophils % (A) 1 %; Eosinophils % (A) 4 %; HCT 44.2 % (34.0-46.0); HGB 14.7 gm/dL (11.4-16.0); Lymphocytes % (A) 16 %; MCHC 33.2 g/dL (31.0-37.0); MCV 96.4 fL (80.0-100.0); Monocytes % (A) 8 %; Neutrophils % (A) 69 %; Platelet Count 228 k/uL (150-450); RBC 4.58 m/uL (3.80-5.40); RDW 13.5 % (11.5-15.5); WBC 8.1 k/uL (3.8-10.6)
[2024-03-07 10:51] VITALS: RESP 18; TEMP 98.1
[2024-03-07 10:51] LABS: Eosinophils # (A) 0.3 k/uL (0-0.7); Lymphocytes # (A) 1.3 k/uL (1.0-4.8); Monocytes # (A) 0.6 k/uL (0-1.0); Neutrophils # (A) 5.6 k/uL (1.3-7.7)
[2024-03-07 10:58] LABS: Prothrombin Time 11.3 sec (10.0-12.5)
[2024-03-07 11:27] LABS: African American GFR (CKD) 61 (>60 ml/min/1.73 sqM); Anion Gap 6 mmol/L; Blood Urea Nitrogen 25 mg/dL (7-17); Calcium 9.2 mg/dL (8.4-10.2); Carbon Dioxide 26 mmol/L (22-30); Chloride 107 mmol/L (98-107); Glucose 84 mg/dL (74-99); Non-African American GFR(CKD) 53 (>60 ml/min/1.73 sqM); Potassium 3.8 mmol/L (3.5-5.1); Sodium 139 mmol/L (137-145)
[2024-03-07] MEDS ORDERED: LIDOCAINE 1% INJ 10MG/ML (20 ML MDV) ONE (11:56)
[2024-03-07] MEDS ORDERED: VERAPAMIL 2.5 MG/ML 2 ML AMP ONE (11:56)
[2024-03-07] MEDS ORDERED: HEPARIN SODIUM 1,000 UN/ML (10ML VL) ONE (11:57)
[2024-03-07] MEDS ORDERED: fentaNYL (PF) 50 MCG/ML 2 ML AMP ONE (11:57)
[2024-03-07] MEDS: LIDOCAINE 2% INJ 20 MG/ML SQ ONE (12:46)
[2024-03-07] MEDS: fentaNYL (PF) 50 MCG/ML 2 ML AMP IVP ONE (12:49)
[2024-03-07] MEDS: VERAPAMIL SYRINGE (5 MG/10 ML) INTRAARTER ONE (12:49)
[2024-03-07] MEDS: MIDAZOLAM 2 MG/2 ML VIAL IVP ONE ×2 (12:49)
[2024-03-07] MEDS: HEPARIN SODIUM 1,000 UN/ML (10ML VL) IVP ONE (12:52)
[2024-03-07] MEDS: IOPAMIDOL-370 100ML BTL INJ ONE (13:03)
[2024-03-07] MEDS ORDERED: RX INFO: IV CONTRAST WAS GIVEN 1 EACH MISC MISCELLANE PRN (13:49)
[2024-03-07 17:00] VITALS: BP 124/62; PULSE 76
--- NOTE | 2024-03-07 22:39 | P.CARDCATH ---
Description of Procedure: PROCEDURES PERFORMED: Left heart catheterization, bilateral coronary angiography, ultrasound guided arterial access, iFR LAD INDICATION: Aortic insufficiency, dyspnea on exertion concerning for angina CONSENT:I have discussed the risks, benefits and alternative therapies for the above-mentioned procedure and for both sedation/analgesia as well as necessary blood product administration, if indicated, as they pertain to this patient. The patient has indicated understanding and acceptance of the risks and procedures discussed. PROCEDURE: After the risks, benefits and alternatives of the above mentioned procedure explained in detail with the patient, informed consent was obtained. Patient was taken to the catheterization lab and prepped and draped in usual fashion. Ultrasound guidance was used to assess for arterial access. 1% lidocaine was used to anesthetize the right radial artery. A 6-[place] sheath was placed in the right radial artery using modified Seldinger technique and ultrasound guidance. Left coronary angiography was performed with a 5-[place] JL 3.5 catheter and right coronary angiography was performed with a 5-[place] FR5 catheter in various views. A 5-[place] FR5 catheter was inserted into the left ventricle and pressure measurements were obtained. The decision was made to perform iFR of the LAD. Using the FL 3.5 catheter, a 0.014 pressure wire was advanced into the proximal left main and normalized. It was then advanced just distal to the mid LAD stent. iFR was performed and was abnormal at 0.80. Given patient was not on antianginals, decision was made to attempt medical therapy first. The right radial sheath was removed and a TR band was placed with hemostasis achieved. The patient tolerated the procedure well. Patient was transported back to the post catheterization holding area in stable condition. Conscious Sedation: Patient was monitored under the direct supervision of myself for conscious sedation using Versed and fentanyl for a total duration of 15 minutes HEMODYNAMICS: AO: 139/71 LV: 139/4, LVEDP 8 SELECTIVE CORONARY ARTERIOGRAPHY: LEFT MAIN: The left main is a large caliber vessel which bifurcates into the LAD and circumflex. There is no significant stenosis. LEFT ANTERIOR DESCENDING CORONARY ARTERY: LAD is a large caliber vessel which wraps around to the apex. There is a mid LAD stent with distal edge 70% stenosis LEFT CIRCUMFLEX CORONARY ARTERY: Left circumflex is a moderate caliber vessel with mild luminal irregularities RIGHT CORONARY ARTERY: The right coronary artery is a large caliber vessel which gives off a PDA and PLV branch and is the dominant vessel. There is a mid RCA 30% stenosis. FINAL IMPRESSION: 1. CAD as described above with somewhat normal coronary arteries other than mid LAD 70% stenosis, 30% stenosis RCA 2. Normal left sided filling pressures 3. iFR abnormal of LAD PLAN: 1. Aggressive risk factor modification per most recent ACC/AHA guidelines. 2. Trial of medical therapy with antianginals. If has continued dyspnea on exertion or angina type symptoms, consider PCI LAD
[2024-03-08] MEDS ORDERED: amLODIPine 2.5 MG TAB PO SCH (09:00)
[2024-03-08] MEDS ORDERED: METOPROLOL SUCCINATE (ER) 25 MG TAB.ER.24H PO SCH (09:00)
== END 2024-03-07 17:06 | disposition home or self-care (01) ==
LOC: CATHCVL 10:11
PROVIDERS: ATTEND Internal Medicine
DX: I35.1 Nonrheumatic aortic (valve) insufficiency (principal); I25.10 Atherosclerotic heart disease of native coronary artery without angina pectoris; I10 Essential (primary) hypertension; E78.5 Hyperlipidemia, unspecified; Z82.49 Family history of ischemic heart disease and other diseases of the circulatory system; Z88.2 Allergy status to sulfonamides; Z88.0 Allergy status to penicillin; Z79.899 Other long term (current) drug therapy; Z98.890 Other specified postprocedural states
CPT/HCPCS: 93458; 93799; 76937; 80048; 85025; 85610; C1769 ×2; C1894; J2001; J2250; J3010; J1644; Q9967

== ENCOUNTER → 2024-04-12 | Outpatient (CLI) | payer MEDICARE, OTHER ==
[2024-04-12 18:28] LABS: Basophils # (A) 0.04 X 10*3/uL (0.00-0.10); Basophils % (A) 0.7 %; Eosinophils # (A) 0.52 X 10*3/uL (0.04-0.35); Eosinophils % (A) 9.4 %; HCT 42.9 % (37.2-46.3); Lymphocytes # (A) 1.49 X 10*3/uL (0.90-5.00); MCH 31.4 pg (27.0-32.0); MCHC 32.6 g/dL (32.0-37.0); MCV 96.2 FL (80.0-97.0); Monocytes # (A) 0.74 X 10*3/uL (0.20-1.00); Monocytes % (A) 13.4 %; NRBC Per 100 WBC 0 X 10*3/uL (0.00-0.01); Neutrophils # (A) 2.72 X 10*3/uL (1.80-7.70); Neutrophils % (A) 49.3 %; Platelet Count 243 X 10*3/uL (140-440); RBC 4.46 X 10*6/uL (4.10-5.20); RDW 12.5 % (11.5-14.5); WBC 5.52 X 10*3/uL (4.50-10.00)
[2024-04-12 19:38] LABS: Blood Urea Nitrogen 21.5 mg/dL (9.0-27.0); Carbon Dioxide 23.1 mmol/L (21.6-31.8); Chloride 105 mmol/L (96-109); Potassium 4.5 mmol/L (3.5-5.5); Sodium 142 mmol/L (135-145)
== END | disposition home or self-care (01) ==
LOC: LABPAT 12:17
PROVIDERS: ATTEND Internal Medicine
DX: Z01.812 Encounter for preprocedural laboratory examination (principal); I25.10 Atherosclerotic heart disease of native coronary artery without angina pectoris; R07.9 Chest pain, unspecified
CPT/HCPCS: 80051; 82565; 84520; 85025

== ENCOUNTER 2024-04-17 10:24 | Day surgery (SDC) | payer MEDICARE, OTHER ==
[2024-04-15 17:53] VITALS: BMI 30.9
[~2024-04-17 10:24] MED LIST changes: -ALPRAZolam 0.25 MG TAB PO PRN; -ATORVASTATIN 80 MG TAB PO ONE; +LIDOCAINE 1% INJ 10MG/ML (20 ML MDV) ONE; -SODIUM CHLORIDE 0.9% 1,000 ML in EMPTY BAG 1 BAG IV SCH; +VERAPAMIL 2.5 MG/ML 2 ML AMP ONE
[2024-04-17] MEDS: IV FLUID CONTINUATION 1,000 ML IV ONE (11:05)
[2024-04-17] MEDS: SODIUM CHLORIDE 0.9% 1,000 ML in EMPTY BAG 1 BAG IV SCH (11:05)
[2024-04-17] MEDS: ALPRAZolam 0.25 MG TAB PO PRN (11:05)
[2024-04-17] MEDS: ASPIRIN 325 MG TAB PO ONE (11:05)
[2024-04-17 11:37] VITALS: RESP 16; TEMP 98.7
[2024-04-17] MEDS ORDERED: LIDOCAINE 1% INJ 10MG/ML (20 ML MDV) ONE (12:42)
[2024-04-17] MEDS ORDERED: VERAPAMIL 2.5 MG/ML 2 ML AMP ONE (12:43)
[2024-04-17] MEDS ORDERED: HEPARIN SODIUM,PORCINE 30 ML 30 ML ONE (12:43)
[2024-04-17] MEDS ORDERED: fentaNYL (PF) 50 MCG/ML 2 ML AMP ONE (12:43)
[2024-04-17] MEDS: fentaNYL (PF) 50 MCG/ML 2 ML AMP IVP ONE (12:55)
[2024-04-17] MEDS: MIDAZOLAM 2 MG/2 ML VIAL IVP ONE (12:55)
[2024-04-17] MEDS: LIDOCAINE 1% INJ 10MG/ML (20 ML MDV) SQ ONE (12:56)
[2024-04-17] MEDS: VERAPAMIL SYRINGE (5 MG/10 ML) INTRAARTER ONE (12:57)
[2024-04-17] MEDS ORDERED: CLOPIDOGREL 75 MG TAB ONE (13:00)
[2024-04-17] MEDS: HEPARIN SODIUM 1,000 UN/ML (10ML VL) IVP ONE (13:00)
[2024-04-17] MEDS: NITROGLYCERIN 1000MCG/10ML SYRINGE INTRACORON ONE ×2 (13:05→13:18)
[2024-04-17] MEDS: CLOPIDOGREL 75 MG TAB PO ONE (13:05)
[2024-04-17 13:07] LABS: INR 1.2 (<1.2); Prothrombin Time 12.5 sec (10.0-12.5)
[2024-04-17] MEDS: IOPAMIDOL-370 200ML BTL INJ ONE (13:30)
[2024-04-17] MEDS ORDERED: ZOLPIDEM 5 MG TAB PO PRN (13:33)
[2024-04-17] MEDS ORDERED: MAG HYDROX/AL HYDROX/SIMETH 30 ML CUP PO PRN (13:33)
[2024-04-17] MEDS ORDERED: RX INFO: IV CONTRAST WAS GIVEN 1 EACH MISC MISCELLANE PRN (13:33)
[2024-04-17] MEDS ORDERED: ATROPINE SULFATE 0.1 MG/ML 10ML SYRINGE IV PRN (13:33)
--- NOTE | 2024-04-17 15:15 | P.PRCINT ---
Percutaneous Coronary Int. - Percutaneous Coronary Intervention Percutaneous Coronary Intervention: PROCEDURES PERFORMED: Left coronary angiography, ultrasound guided arterial access, PCI of mid LAD with a 2.0 x 12mm Royal, post dilated with a 2.25mm NC balloon INDICATION: CAD, abnormal iFR, NYHA class 3 angina with exertion CONSENT:I have discussed the risks, benefits and alternative therapies for the above-mentioned procedure and for both sedation/analgesia as well as necessary blood product administration, if indicated, as they pertain to this patient. The patient has indicated understanding and acceptance of the risks and procedures discussed. PROCEDURE: After the risks, benefits and alternatives of the above mentioned procedure explained in detail with the patient, informed consent was obtained. Patient was taken to the catheterization lab and prepped and draped in usual fashion. Ultrasound guidance was used to assess for arterial access. 1% lidocaine was used to anesthetize the right radial artery. A 6-[place] sheath was placed in the right radial artery using modified Seldinger technique and ultrasound guidance. the decision was made to perform PCI of LAD. A 6-[place] CLS 3.5 guide was used to engage the left main. A 0.014 BMW wire was advanced into the distal LAD. Intravascular ultrasound was performed which showed reference vessel 2.0 mm distally and 85% calcified stenosis at the edge of the prior stent and otherwise diffuse CAD. Predilation was performed with a 2.25 noncompliant balloon. Next a 2.0 x 12 mm Royal IJEOMA was placed overlapping her first stent. The stent was postdilated with a 2.25 noncompliant balloon. Repeat intravascular ultrasound was performed which showed good stent apposition with no dissection. Final angiograms were performed. Preintervention there was 85% stenosis and LAMAR-3 flow and postintervention there was less than 10% stenosis with LAMAR 3 flow. The right radial sheath was removed and a TR band was placed with hemostasis achieved. The patient tolerated the procedure well. Patient was transported back to the post catheterization holding area in stable condition. Conscious Sedation: Patient was monitored under the direct supervision of myself for conscious sedation using Versed and fentanyl for a total duration of 34 minutes HEMODYNAMICS: Ao: 132/71 SELECTIVE CORONARY ARTERIOGRAPHY: LEFT MAIN: The left main is a large caliber vessel which bifurcates into the LAD and circumflex. There is no significant stenosis. LEFT ANTERIOR DESCENDING CORONARY ARTERY: LAD is a large caliber vessel which wraps around to the apex. There is diffuse mild 20-30% proximal and mid LAD stenosis. At the distal edge of the previous stent there is a 85% stenosis. LEFT CIRCUMFLEX CORONARY ARTERY: Left circumflex is a moderate caliber vessel with mild luminal irregularities RIGHT CORONARY ARTERY: The right coronary artery was not imaged. FINAL IMPRESSION: 1. CAD as described above including 85% mid LAD stenosis 2. S/p PCI of mid LAD with a 2.0 x 12mm Sam, post dilated with a 2.25mm NC balloon PLAN: 1. Aggressive risk factor modification per most recent ACC/AHA guidelines. 2. Continue aspirin, Plavix and Coumadin for 1 week then transition to Coumadin and Plavix for 6 months.
[2024-04-17 17:14] VITALS: BP 120/59
[2024-04-17 18:02] VITALS: PULSE 68
[2024-04-18] MEDS ORDERED: CLOPIDOGREL 75 MG TAB PO SCH (09:00)
== END 2024-04-17 17:34 | disposition home or self-care (01) ==
LOC: CATHCVL 10:24
PROVIDERS: ATTEND Internal Medicine
DX: I25.119 Atherosclerotic heart disease of native coronary artery with unspecified angina pectoris (principal); I35.1 Nonrheumatic aortic (valve) insufficiency; E78.5 Hyperlipidemia, unspecified; Z82.49 Family history of ischemic heart disease and other diseases of the circulatory system; Z88.0 Allergy status to penicillin; Z88.2 Allergy status to sulfonamides; Z95.5 Presence of coronary angioplasty implant and graft
CPT/HCPCS: 92978; 93458; 76937; 85610; C9600; C1769 ×2; C1887; C1894; C1753; C1874; C1725; J2250; J2001; J3010; J1644; Q9967; J2305

== ENCOUNTER 2025-05-23 15:22 | Emergency (ER) | payer MEDICARE, OTHER ==
[2025-05-23 15:47] VITALS: RESP 20
[2025-05-23 16:12] LABS: Basophils # (A) 0.02 10*3/uL (0.00-0.10); Basophils % (A) 0.3 %; Eosinophils # (A) 0.33 10*3/uL (0.04-0.35); Eosinophils % (A) 5.1 %; HCT 41.1 % (37.2-46.3); HGB 14.2 g/dL (12.0-15.0); Lymphocytes # (A) 1.38 10*3/uL (0.90-5.00); Lymphocytes % (A) 21.5 %; MCH 31.3 pg (27.0-32.0); MCHC 34.5 g/dL (32.0-37.0); MCV 90.7 fL (80.0-97.0); Mean Platelet Volume 9.7 fL (9.5-12.2); Monocytes # (A) 0.63 10*3/uL (0.20-1.00); Monocytes % (A) 9.8 %; Neutrophils % (A) 62.2 %; Platelet Count 232 10*3/uL (140-440); RBC 4.53 10*6/uL (4.10-5.20); RDW 13.2 % (11.5-14.5); WBC 6.43 10*3/uL (4.50-10.00)
[2025-05-23 16:27] LABS: ALT 27 U/L (4-34); AST 29 U/L (14-36); African American GFR (CKD) >90 (>60 ml/min/1.73 sqM); Albumin 4.2 g/dL (3.5-5.0); Alcohol <10 mg/dL; Alkaline Phosphatase 83 U/L (38-126); Anion Gap 8 mmol/L; Blood Urea Nitrogen 17 mg/dL (7-17); Calcium 9.3 mg/dL (8.4-10.2); Carbon Dioxide 23 mmol/L (22-30); Chloride 106 mmol/L (98-107); Glucose 111 mg/dL (74-99); Non-African American GFR(CKD) 82 (>60 ml/min/1.73 sqM); Potassium 3.6 mmol/L (3.5-5.1); Sodium 137 mmol/L (137-145); Total Bilirubin 0.6 mg/dL (0.2-1.3); Total Protein 6.9 g/dL (6.3-8.2)
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
[2025-05-23 16:34] LABS: INR 3.7 (<1.2); Partial Thromboplastin Time 32.7 sec (22.0-30.0); Prothrombin Time 36.6 sec (10.0-12.5)
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
[2025-05-23 16:51] LABS: Glucose,Whole Blood 85 mg/dL (70-110)
[2025-05-23] MEDS: SODIUM CHLORIDE 0.9% 1,000 ML IV STA (16:56)
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
[2025-05-23] MEDS: PROPARACAINE 0.5% OPHTH DROPS 15 ML BTL BOTH EYES STA (17:43)
[2025-05-23 18:05] LABS: Appearance,Urine Cloudy (Clear); Bacteria,Urine Occasional /hpf; Bilirubin,Urine Negative (Negative); Blood,Urine Small (Negative); Color,Urine Colorless; Glucose,Urine (UA) Negative (Negative); Ketones,Urine Negative (Negative); Leukocyte Esterase,Urine Large (Negative); Mucus,Urine Rare /hpf; Nitrite,Urine Positive (Negative); PH, Urine 6.5 (5.0-8.0); Protein,Urine Trace (Negative); RBC,Urine 44 /hpf (0-5); Specific Gravity,Urine 1.024 (1.001-1.035); Squamous Epithelial Cell,Urine 6 /hpf (0-4); Urobilinogen,Urine <2.0 mg/dL (<2.0); WBC,Urine 7 /hpf (0-5)
[2025-05-23 18:10] LABS: Amphetamine Screen,Urine Not Detected (NotDetected); Barbiturate Screen,Urine Not Detected (NotDetected); Benzodiazepines Screen,Urine Not Detected (NotDetected); Cocaine Screen,Urine Not Detected (NotDetected); Methadone Screen, Urine Not Detected (NotDetected); Opiate Screen,Urine Not Detected (NotDetected); Oxycodone Screen, Urine Not Detected (NotDetected); Phencyclidine Screen,Urine Not Detected (NotDetected); Tricyclic Antidepressant,Urine Not Detected (NotDetected); Urn Cannabinoid Scrn Detected (NotDetected)
[2025-05-23] MEDS: CEPHALEXIN 500 MG CAP PO STA (19:04)
[2025-05-23] MEDS: LABETALOL 5 MG/ML VIAL MDV IVP STA (19:06)
[2025-05-23] MEDS: ERYTHROMYCIN 5 MG/GM OPHTH OINT 3.5 GM TUBE BOTH EYES SCH (20:11)
[2025-05-23 20:35] VITALS: BP 160/74; PULSE 72; TEMP 98
== END 2025-05-23 20:20 | disposition home or self-care (01) ==
LOC: EC 15:22
DX: N39.0 Urinary tract infection, site not specified (principal); I10 Essential (primary) hypertension; I25.10 Atherosclerotic heart disease of native coronary artery without angina pectoris; Z79.01 Long term (current) use of anticoagulants; Z88.0 Allergy status to penicillin; Z88.2 Allergy status to sulfonamides; Z88.7 Allergy status to serum and vaccine; V43.52XA Car driver injured in collision with other type car in traffic accident, initial encounter; V48.5XXA Car driver injured in noncollision transport accident in traffic accident, initial encounter; Y92.410 Unspecified street and highway as the place of occurrence of the external cause
CPT/HCPCS: 36415; 93005; 86900; 86901; 80053; 83605; 84484; 85025; 85610; 85730; 86850; 81001; 80306; 72170; 71045; 72125; 70450; 71260; 74177; 99291; 96374; 96361; G0480; Q9967; J1920; 80320